=== PATIENT | male | born 1950 | race Caucasian/White ===

== ENCOUNTER 2018-08-27 14:47 | Inpatient (IN) | payer MEDICARE, MEDICAID | END 2018-09-06 16:50 | disposition home or self-care (01) | LOC: WEST WING 08-30 13:54 → ER 14:47 → OVERFLOW 20:33 → WEST WING 23:45 | PROC: 0BBB8ZX Excision of Left Lower Lobe Bronchus, Via Natural or Artificial Opening Endoscopic, Diagnostic (ICD-10-PCS; principal; ~2018-08-27) | DX: J18.1 Lobar pneumonia, unspecified organism (principal); E43 Unspecified severe protein-calorie malnutrition; K31.5 Obstruction of duodenum; N39.0 Urinary tract infection, site not specified; K22.2 Esophageal obstruction; K29.70 Gastritis, unspecified, without bleeding; K20.9 Esophagitis, unspecified; K26.9 Duodenal ulcer, unspecified as acute or chronic, without hemorrhage or perforation ==